=== PATIENT | female | born 1960 ===

== ENCOUNTER 2017-08-13 15:44 | Inpatient (IN) ==
--- NOTE | 2017-08-13 16:49 | Emergency Department Note ---
Arrival - Arrival Chief Complaint: Chest Pain Stated Complaint: chest pain ED Nursing Triage Note: c/o chest pain that started this am. Patient states that she did have some n/v this morning when it started. she went to [facility] they state that she has some changes to her EKG. Patient was given ASA 324mg, nitro 1inch to left chest wall, morphine 2mg, and zofran 4mg. Patient is currently pain free. Mode of Arrival: Stretcher Limitations: No Limitations Source: Patient, EMS, RN Notes Reviewed Time Seen by Provider: 08/13/17 16:06 - History of Present Illness HPI Narrative: The patient complains of intermittent lower sternal, epigastric and left lower chest pain radiating to the back, off and on since this morning. The patient says it started when she was getting ready for work. She says it felt "like gallstones or like acid reflux." She had some mild nausea and dizziness. No vomiting, shortness of breath or diaphoresis. She noted no exacerbating or relieving factors and has not had similar symptoms in the past. Patient states the pain is completely resolved at this point. She denies any fever, cough, rhinorrhea, sore throat or other recent illness. The patient does have a history of high blood pressure, diabetes, high cholesterol and a family history of early coronary disease. She has no history of heart disease. She is not a smoker. Patient was seen at [facility] where she had an EKG that showed a left bundle branch block. This was a change from a previous EKG done in February 2016. Her troponin was normal. Allergies/Adverse Reactions: Allergies Allergy/AdvReac Type Severity Reaction Status Date / Time No Known Allergies Allergy Unverified 08/13/17 15:54 Home Medications: Home Medications Medication Instructions Recorded Confirmed Type Aspirin [Ecotrin] 81 mg PO QAM 08/13/17 08/13/17 History Glyburide/Metformin HCl 2 each PO BID 08/13/17 08/13/17 History [Glyburide-Metformin 5-500 mg] Insulin Aspart [NovoLOG FlexPen] 5 units SUBCUT TID W/MEALS 08/13/17 08/13/17 History Insulin Detemir [Levemir FlexPen] 45 units SUBCUT BEDTIME 08/13/17 08/13/17 History Lisinopril [Lisinopril] 20 mg PO QAM 08/13/17 08/13/17 History Simvastatin [Simvastatin] 10 mg PO BEDTIME 08/13/17 08/13/17 History amLODIPine [Norvasc] 5 mg PO QAM 08/13/17 08/13/17 History Review of System - Review of System 12 point system: reviewed and no additional remarkable complaints except as stated - Review of System Constitutional: Absent: diaphoresis, fever, weakness Head/Ears/Nose/Throat: Absent: nasal drainage, sore throat Respiratory: Absent: cough, respiratory distress, wheezing Cardiovascular: Present: chest pain. Absent: palpitations, dyspnea on exertion , orthopnea, edema, syncope Gastrointestinal: Present: abdominal pain, nausea. Absent: vomiting Musculoskeletal: Present: back pain. Absent: arm pain, neck pain Medical,Surgical,& Family Hx - Medical History Cardio: History of: Hypertension Endocrine: History of: Diabetes Mellitus (NIDDM), Dyslipidemia - Surgical History Abdominal Surgeries: Surgical HX of: Appendectomy, Cholecystectomy - Family History Family History: noncontributory - Social History Smoking Status: Never smoker Frequency of Alcohol Use: None Type of Drug Use: None Exam Physical Examination: GENERAL: Alert. No acute distress. HEENT: Normocephalic and atraumatic. There is no nasal drainage. No pharyngeal erythema or exudate. NECK: Normal inspection. Supple. No lymphadenopathy or meningismus. LUNGS: No respiratory distress. Clear to auscultation bilaterally, no wheezes, rales or rhonchi. HEART: Regular rate and rhythm. Chest: Mild tenderness of the anterior left lower chest wall. ABDOMEN: Soft, nontender and nondistended with normoactive bowel sounds. BACK: Normal inspection. SKIN: Color normal. Warm and dry. EXTREMITIES: Nontender. Normal range of motion. No pedal edema. NEUROLOGICAL/PSYCHIATRIC: Alert and oriented -3 with normal mood and affect. Cranial nerves normal. No motor or sensory deficit. Vital Signs: Vital Signs Temperature 97.1 F L 08/13/17 15:44 Pulse Rate 54 L 08/13/17 15:44 Respiratory Rate 16 08/13/17 15:45 Blood Pressure 172/78 08/13/17 15:44 O2 Sat by Pulse Oximetry 100 08/13/17 15:44 Course - Reevaluation(s) Reevaluation #1: The patient has remained stable here with no further chest pain. Her repeat enzymes are normal and her EKG here does not show the left bundle branch block that was seen at [place]. She is mildly tender over the left lower rib margin and I suspect this is more likely chest wall and/or gastritis pain, however, she has risk factors of hypertension, diabetes, high cholesterol and an early family history of CAD. I have discussed patient with the hospitalist service who will see her and admit for observation and serial enzymes. Time: 18:26 Results - Labs Lab Results: I have reviewed the patients labs Labs: Labs were done at [facility] and are significant as follows: Sodium 144 Potassium 3.8 Chloride 109 CO2 27.6 BUN 16 Creatinine 0.8 Bilirubin 0.3 SGOT 16 SGPT 20 White blood cell count 5.7 Hemoglobin 12.6 Hematocrit 36.2 Platelet 137 Troponin less than 0.05 CPK 72 CK-MB 1.1 BMP 280 Laboratory Tests 08/13/17 17:32 Total Creatine Kinase 59 CK-MB (CK-2) 1.4 Troponin I < 0.015 - Impressions Chest x-ray was done and [facility] and showed no acute abnormality. EKG done at [facility] showed a sinus bradycardia at 57 with a left bundle branch block. Repeat EKG here showed a sinus bradycardia at 52 with no bundle branch block. There were some nonspecific T-wave abnormalities. Disposition Clinical Impression: Chest pain Case discussed with: patient Disposition: Still a Patient Condition: Stable Time of Disposition: 18:27
--- NOTE | 2017-08-13 17:39 | EKG Report ---
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
[2017-08-13 18:17] LABS: Troponin I Only < 0.015 NG/ML (0.00-0.045)
[2017-08-13] MEDS ORDERED: ACETAMINOPHEN 325 MG TABLET PO PRN ×2 (18:47)
[2017-08-13] MEDS ORDERED: DOCUSATE SODIUM 100 MG CAPSULE PO PRN (18:47)
[2017-08-13] MEDS ORDERED: diphenhydrAMINE CAP 25 MG CAPSULE PO PRN (18:47)
[2017-08-13] MEDS ORDERED: DEXTROSE 50% 25 GM/50 ML SYRINGE IV PRN (18:47)
[2017-08-13] MEDS ORDERED: guaiFENesin/DM ER 600-30 MG TABLET PO PRN (18:47)
[2017-08-13] MEDS ORDERED: ONDANSETRON 4 MG/2 ML VIAL IV PRN (18:47)
[2017-08-13] MEDS ORDERED: MORPHINE 2 MG/1 ML SYRINGE IV PRN (18:47)
[2017-08-13] MEDS ORDERED: PROMETHAZINE 25 MG/1 ML VIAL IM PRN (18:47)
[2017-08-13] MEDS ORDERED: GLUCAGON 1 MG VIAL IM PRN (18:47)
--- NOTE | 2017-08-13 19:00 | Hospitalist History & Physical ---
Assessment and Plan - Time spent with patient Time spent with patient: Greater than 30 minutes (1) Dizziness Status: Acute Assessment and plan: 57-year-old female admitted by the hospitalist service as a transfer from [facility] with complaints of chest pain and dizziness. She does have bradycardia and she is unsure if this is normal for her. She does take amlodipine and this will be held for right now. Remainder of her hypertensive medications will be restarted. She will also be given hydralazine as needed for blood pressure greater than 150/80. Patient is a diabetic on metformin and insulin. We will hold these and put her on sliding scale for now. She will get serial troponins and serial EKGs. We will also check a CT of the chest PE protocol to rule out pulmonary embolism. Checking amylase and lipase as well to rule out pancreatitis. Will await results of CT of the chest and remaining labs and see if cardiology needs to be consulted. Patient's case has been discussed with Dr. West and further recommendations to follow. Current Visit: Yes (2) Diabetes Status: Acute Current Visit: Yes (3) Hypertension Status: Acute Current Visit: Yes (4) Hyperlipidemia Status: Acute Current Visit: Yes (5) Bradycardia Status: Acute Current Visit: Yes (6) Chest pain Status: Acute Current Visit: Yes History of Present Illness Chief complaint: Chest pain and dizziness History of present illness: Ms. Mustafa is a 57 year old female with history of diabetes, hypertension, hyperlipidemia transferred to the ED from the [facility] with complaints of dizziness and chest pain. Patient states this morning when she was getting ready for work she started to have epigastric and left-sided chest pain that radiates through to her back and around her flank. She rates the pain a 5/10 and it is unrelenting and burning. She states she has been having mild headaches and some dizziness as well. She denies shortness of breath or lower extremity edema. Records from the [facility] show normal CBC and BMP. Her troponins are normal. EKG is showing left bundle branch block at [facility] [place] and EKG done here is showing bradycardia with rate at 52 and moderate T-wave abnormality with possible lateral ischemia. She is mildly hypertensive with blood pressure 179/79. Upon exam she is lying comfortably in no acute distress, chest is clear, she has bradycardic, abdomen is soft and nontender to palpation. After discussion with Dr. Vital the ED physician and Dr. West the admitting hospitalist, it was agreed patient will be admitted for further evaluation and treatment. Patient's medicines have been reconciled and she is a full code. Home Medications Medication Instructions Recorded Confirmed Type Aspirin [Ecotrin] 81 mg PO QAM 08/13/17 08/13/17 History Glyburide/Metformin HCl 2 each PO BID 08/13/17 08/13/17 History [Glyburide-Metformin 5-500 mg] Insulin Aspart [NovoLOG FlexPen] 5 units SUBCUT TID W/MEALS 08/13/17 08/13/17 History Insulin Detemir [Levemir FlexPen] 45 units SUBCUT BEDTIME 08/13/17 08/13/17 History Lisinopril [Lisinopril] 20 mg PO QAM 08/13/17 08/13/17 History Simvastatin [Simvastatin] 10 mg PO BEDTIME 08/13/17 08/13/17 History amLODIPine [Norvasc] 5 mg PO QAM 08/13/17 08/13/17 History Allergies Allergy/AdvReac Type Severity Reaction Status Date / Time No Known Allergies Allergy Unverified 08/13/17 15:54 Medical,Surgical,& Family Hx - Medical History Cardio: History of: Hypertension Endocrine: History of: Diabetes Mellitus (NIDDM), Dyslipidemia - Surgical History Abdominal Surgeries: Surgical HX of: Appendectomy, Cholecystectomy - Family History Family History: Reports;: Family Hypertension - Social History Smoking Status: Never smoker Frequency of Alcohol Use: None Type of Drug Use: None Marital Status: Single Lives With:: Alone Functional capacity: independent ambulation 12 point system: reviewed and no additional remarkable complaints except as stated Exam - Constitutional Vitals: Period Temp Pulse Resp BP Sys/Fish Pulse Ox Last 24 Hr 97.1 F-97.1 F 54-54 16-16 172-172/78-78 100 Exam: Constitutional System: No distress. No tremulousness. Head: Normocephalic, atraumatic. Ears, Nose and Throat System: No evidence of Otitis or Mastoiditis. No epistaxis or discharge Eyes System: Pupils equal, round, and reactive. Extraocular muscles intact. Neck: Supple, without adenopathy, No jugular venous distention. No thyromegaly, neck mass, or prior surgery apparent. Respiratory System: Chest clear to auscultation. Cardiovascular System: Heart with bradycardic rate and rhythm. No murmur. GI System: Abdomen soft, nontender. Normo active bowel sounds present. Musculoskeletal System: limbs with no pedal edema. Full distal pulses. Neurological System: No discernable sensory deficit. No aphasia Psychiatric System: Conversation is rational Results - Labs Lab Results: I have reviewed the past 24 hour labs Labs: Labs from [facility] show normal CBC and CMP, normal troponin Amylase and lipase are pending - Diagnostic Findings Procedure: Chest x-ray: pending, CT - chest: pending
--- NOTE | 2017-08-13 19:04 | XRay Report ---
2 view chest. Indication: Chest pain. Comparison: Outside chest x-ray from earlier today. The heart is normal in size. The mediastinal contours are normal. The pulmonary vasculature is normal. The right lung is clear. There is mild interstitial prominence in the left lung base, not seen on the previous study. No pneumothorax. No pleural effusion. Degenerative changes are present within the spinal column. Impression: Mild atelectasis or early infiltrate developing in the left lung base. PROCEDURE INTERPRETED AT [facility] DEPARTMENT OF RADIOLOGY Final Report Signed by: Dr. Margie Davis
[2017-08-13 19:17] LABS: Magnesium 1.8 MG/DL (1.8-2.4); Risk Ratio 3.75
--- NOTE | 2017-08-13 19:28 | CT Report ---
CT of the chest with intravenous contrast, PE protocol. Indication: Chest pain. 80 cc Omni 350. Axial images were obtained with sagittal and coronal 2-D reconstructions. No previous study. There is no evidence of pulmonary thromboembolism. The thyroid gland is normal in size. There is no supraclavicular or axillary lymphadenopathy. There is no hilar or mediastinal lymphadenopathy. The heart is normal in size. The thoracic aorta is of normal caliber. There are mild hypoaeration changes at the lung bases. Degenerative changes are noted within the spinal column. Impression: Mild basilar hypoaeration. The CT exam was performed using one or more of the following dose reduction techniques: Automated exposure control, adjustment of the mA and/or kV according to patient size, or use of iterative reconstruction technique. PROCEDURE INTERPRETED AT [facility] DEPARTMENT OF RADIOLOGY Final Report Signed by: Dr. Margie Davis
[2017-08-13] MEDS: INSULIN LISPRO 100 UNIT/ML SUBCUT SCH ×2 (20:32→21:58)
[2017-08-13] MEDS: SODIUM CHLORIDE 0.9% 1,000 ML IV SCH (21:52)
[2017-08-13] MEDS: SIMVASTATIN 10 MG TABLET PO SCH (21:57)
[2017-08-13 23:37] LABS: Troponin I Only < 0.015 NG/ML (0.00-0.045)
[2017-08-13] MEDS ORDERED: HEPARIN/NACL 0.9% 2 UNITS/ML 500 ML IV ONE (23:37)
[2017-08-13] MEDS ORDERED: LIDOCAINE 1% 20 ML VIAL ONE (23:37)
[2017-08-13] MEDS ORDERED: fentaNYL 100 MCG/2 ML VIAL ONE (23:50)
[2017-08-13] MEDS ORDERED: MIDAZOLAM 2 MG/2 ML VIAL ONE (23:50)
--- NOTE | 2017-08-14 00:26 | EKG Report ---
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
--- NOTE | 2017-08-14 00:28 | Event Note ---
I was called by the nurses on the fifth floor due to an abnormal EKG done on Ms. Mustafa for chest pain. The EKG was compared to a previous one done in our emergency department. Findings were also discussed with the emergency room physician. I contacted the smokehouse worker to notify her of the heart alert and the EKG changes. The Director Marketing Analytics team was activated. I later notified Dr. Bosch of the patient's EKG changes. We discussed the case. At this time the patient has an uncontrolled blood pressure with systolic over 200 but is no longer having active chest pain. The patient will be taken to the CCU and started on nitroglycerin drip and given Lovenox subcutaneously for anticoagulation. The patient will be evaluated in the morning by cardiology. At this time she will be under close monitoring in the CCU. I have explained this to the patient and she agrees to move forward. Of note her second set of cardiac enzymes is negative.
[2017-08-14] MEDS ORDERED: ENOXAPARIN 80 MG/0.8 ML SYRINGE SUBCUT SCH (00:30)
[2017-08-14] MEDS ORDERED: NITROGLYCERIN DRIP 50 MG/250 ML BOTTLE IV SCH (00:30)
--- NOTE | 2017-08-14 01:52 | EKG Report ---
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
[2017-08-14 04:58] LABS: Basophils % 0.3 % (0.0-0.8); Eosinophils # 0.1 10*3/uL (0.0-0.87); Eosinophils % 1.8 % (0.00-10.9); Hematocrit 33.8 VOL% (35.7-47.0); Immature Granulocytes % 0.3 %; Immature Granulocytes Absolute 0.02 #; Lymphocytes # 1.6 10*3/uL (1.4-4.0); Lymphocytes % 25.6 % (21.3-54.2); Mean Corpuscular HGB Conc 35.5 GM/DL (32-36); Mean Corpuscular Hemoglobin 29 PG (27-34); Mean Corpuscular Volume 81.4 FL (87-102); Mean Platelet Volume 11.1 FL (9.6-12.0); Monocytes # 0.4 10*3/uL (0.11-0.8); Monocytes % 6.1 % (1.7-12.7); Neutrophils # 4.1 10*3/uL (1.4-7.4); Neutrophils % 65.9 % (38.7-73.9); Platelet Count 139 T/CUMM (130-400); Red Blood Count 4.15 MC/CUMM (3.8-5.5); Red Cell Distribution Width 13.2 % (9.3-17.3); White Blood Count 6.2 T/CUMM (4-12)
[2017-08-14 05:28] LABS: Calcium 8.3 MG/DL (8.5-10.1); Osmolality,Calculated 286.4 MOS/KG (273-304); Potassium 3.5 MMOL/L (3.5-5.1)
[2017-08-14 05:31] LABS: Troponin I Only < 0.015 NG/ML (0.00-0.045)
[2017-08-14] MEDS: SODIUM CHLORIDE 0.9% 1,000 ML IV SCH ×2 (06:00→16:59)
[2017-08-14] MEDS ORDERED: diphenhydrAMINE CAP 25 MG CAPSULE PO ONE (06:45)
[2017-08-14] MEDS ORDERED: DIAZEPAM 5 MG TABLET PO ONE (06:45)
--- NOTE | 2017-08-14 06:50 | Cardiology Consult Note ---
Assessment and Plan - Time spent with patient Time spent with patient: Greater than 30 minutes (1) Unstable angina Status: Acute Current Visit: Yes (2) Diabetes Status: Chronic Current Visit: Yes Qualifiers: Diabetes mellitus type: type 2 (3) Hypertension Status: Chronic Assessment and plan: Uncontrolled Current Visit: Yes Qualifiers: Hypertension type: essential hypertension Qualified Code(s): I10 - Essential (primary) hypertension (4) Hyperlipidemia Status: Chronic Current Visit: Yes Qualifiers: Hyperlipidemia type: pure hypercholesterolemia Qualified Code(s): E78.00 - Pure hypercholesterolemia, unspecified; E78.0 - Pure hypercholesterolemia History of Present Illness - Data of Consult Patient: new to practice Consult date: 08/14/17 Requesting Physician: Jose Ramon West - Consult Narrative Reason for consult: chest pain History of present illness: Ms. Mustafa is a 57 year old female who has not experienced chest pain until yesterday. The patient is diabetic hypertensive and has a strong family history of coronary disease with both her mother and brother having coronary events at a young age. The patient has poorly controlled diabetes and states her blood sugars run as high as 280 consistently. 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 Yesterday she developed chest discomfort that she describes as "indigestion" it was worse throughout the morning it seemed to get better anytime she was hurrying to get her kids ready to go to school or when she walked. It was not associated with nausea or diaphoresis. She states she has indigestion frequently but this was just a little different but that is exactly what it felt like. The patient went to [facility] was ultimately transferred to [facility] was subsequently transferred here to the inpatient setting. She had a left bundle branch block at the outpatient facility. She has intermittent significant ST segment changes and a "heart alert" was called last night the patient was taken directly to the Internet Architect as the Internet Architect was activated. She was not experiencing chest discomfort at that time I was called once the patient was on the table and this was the first time her of the patient. The patient was not having chest pain and she had a markedly elevated blood pressure. I later discussed with Dr. West. I recommend the patient have blood pressure control and medical management in the ICU. At this time the patient had 2 sets of negative biomarkers and intermittent left bundle branch block. She is currently pain-free has not had any discomfort during the night. I saw on the early a.m. hours of 08/14/2017. I discussed with her in detail the risks benefits of options of left heart catheterization. We discussed each potential complication. She was not familiar with left heart catheterization. She did voice understanding and wished to proceed. Informed signed consent was taken from the patient after our discussion by nursing staff. CC: Jose Ramon West MD - Home Medications and Allergies Home Medications: Home Medications Medication Instructions Recorded Confirmed Type Aspirin [Ecotrin] 81 mg PO QAM 08/13/17 08/13/17 History Glyburide/Metformin HCl 2 each PO BID 08/13/17 08/13/17 History [Glyburide-Metformin 5-500 mg] Insulin Aspart [NovoLOG FlexPen] 5 units SUBCUT TID W/MEALS 08/13/17 08/13/17 History Insulin Detemir [Levemir FlexPen] 45 units SUBCUT BEDTIME 08/13/17 08/13/17 History Lisinopril [Lisinopril] 20 mg PO QAM 08/13/17 08/13/17 History Simvastatin [Simvastatin] 10 mg PO BEDTIME 08/13/17 08/13/17 History amLODIPine [Norvasc] 5 mg PO QAM 08/13/17 08/13/17 History Allergies/Adverse Reactions: Allergies Allergy/AdvReac Type Severity Reaction Status Date / Time No Known Allergies Allergy Unverified 08/13/17 15:54 - Constitutional Constitutional: Absent: anorexia, chills - EENT Eyes: Present: blurry vision Ears: Absent: ear discharge, tinnitus Nose, mouth and throat: Absent: dysphagia, epistaxis, lip swelling - Cardiovascular Cardiovascular: Present: chest pain at rest, chest pain with activity, lightheadedness - Respiratory Respiratory: Present: dyspnea on exertion - Gastrointestinal Gastrointestinal: Present: dyspepsia. Absent: abdominal pain, bloating - Genitourinary Genitourinary: Absent: abnormal vaginal bleeding, difficulty urinating - Musculoskeletal Musculoskeletal: Absent: arthralgias, joint swelling - Neurological Neurological: Present: headache(s). Absent: abnormal gait, abnormal speech, disequilibrium - Psychiatric Psychiatric: Absent: anxiety, auditory hallucinations, depression - Endocrine Endocrine: Present: fatigue, heat intolerance. Absent: cold intolerance, polyuria - Hematologic/Lymphatic Hematologic/Lymphatic: Absent: easy bleeding, easy bruising Medical,Surgical,& Family Hx - Medical History Cardio: History of: Hypertension Psychological: No history of: Anxiety Disorders, ADHD, Behavior Problems, Bipolar Disorder, Depression, Psychiatric/Substance Abuse Tx, Schizophrenia, Violent Behavior, Psychiatric Problems Endocrine: History of: Diabetes Mellitus (NIDDM), Dyslipidemia - Surgical History Abdominal Surgeries: Surgical HX of: Appendectomy, Cholecystectomy Reproductive Surgeries: Surgical HX of;: Section - Family History Family History: Reports;: Family Heart Disease, Family Hypertension - Social History Smoking Status: Never smoker Frequency of Alcohol Use: None Type of Drug Use: None Marital Status: Single Lives With:: Children Functional capacity: independent ambulation Physical Examination Vital Signs Temp Pulse Resp BP Pulse Ox 97.1 F L 54 L 16 172/78 100 08/13/17 15:44 08/13/17 15:44 08/13/17 15:44 08/13/17 15:44 08/13/17 15:44 General: Present: Appears Well, Other (Morbid exogenous obesity) HEENT: Absent: Pallor Neck: Present: Supple Neck, Midline Trachea Cardiac: Present: Reg Rate and Rhythm, S1/S2, S4 Lungs: Present: Normal Exam, Clear Ascult./Percussion Neuro: Present: Cranial Nerve 2-12 Intact, Motor Function Intact, Sensory Function Intact, DTR Norm/Equal U/L Extrem, Negative Rhomberg, Coordination Normal Abdomen: Present: Soft, Active Bowel Sounds, No Masses, No Pulsations/Bruits Skin: Present: Clear Extremities: Present: Edema (trace) Result/EKG - Labs CBC & BMP: 08/14/17 04:00 08/14/17 04:01 Labs: Laboratory Results - last 24 hr 08/13/17 08/13/17 08/13/17 17:32 17:32 17:32 WBC RBC Hgb Hct MCV MCH MCHC RDW Plt Count MPV Neut % (Auto) Lymph % (Auto) [place] % (Auto) Eos % (Auto) Baso % (Auto) Neut # (Auto) Lymph # (Auto) [place] # (Auto) Eos # (Auto) Baso # (Auto) Immature Gran % Nucleated RBC % Immature Gran # Nucleated RBCs # Immature Plt Fraction Sodium Potassium Chloride Carbon Dioxide Anion Gap BUN Creatinine GFR Calculation BUN/Creatinine Ratio Glucose POC Glucose Hemoglobin A1c 9.3 H Calculated Osmolality Calcium Magnesium Total Creatine Kinase 59 CK-MB (CK-2) 1.4 Troponin I < 0.015 B-Natriuretic Peptide Triglycerides Cholesterol LDL Cholesterol VLDL Cholesterol HDL Cholesterol Heart Disease Risk Ratio Amylase 40 Lipase 143.0 08/13/17 08/13/17 08/13/17 17:32 19:41 20:17 WBC RBC Hgb Hct MCV MCH MCHC RDW Plt Count MPV Neut % (Auto) Lymph % (Auto) [place] % (Auto) Eos % (Auto) Baso % (Auto) Neut # (Auto) Lymph # (Auto) [place] # (Auto) Eos # (Auto) Baso # (Auto) Immature Gran % Nucleated RBC % Immature Gran # Nucleated RBCs # Immature Plt Fraction Sodium Potassium Chloride Carbon Dioxide Anion Gap BUN Creatinine GFR Calculation BUN/Creatinine Ratio Glucose POC Glucose 73 L 107 H Hemoglobin A1c Calculated Osmolality Calcium Magnesium 1.8 Total Creatine Kinase CK-MB (CK-2) Troponin I B-Natriuretic Peptide Triglycerides 155 H Cholesterol 165 LDL Cholesterol 102.0 VLDL Cholesterol 31.0 HDL Cholesterol 44 Heart Disease Risk Ratio 3.75 Amylase Lipase 08/13/17 08/14/17 08/14/17 23:02 04:00 04:00 WBC 6.2 RBC 4.15 Hgb 12.0 Hct 33.8 L MCV 81.4 L MCH 29 MCHC 35.5 RDW 13.2 Plt Count 139 MPV 11.1 Neut % (Auto) 65.9 Lymph % (Auto) 25.6 Montgomery % (Auto) 6.1 Eos % (Auto) 1.8 Baso % (Auto) 0.3 Neut # (Auto) 4.1 Lymph # (Auto) 1.6 Montgomery # (Auto) 0.4 Eos # (Auto) 0.1 Baso # (Auto) 0.0 Immature Gran % 0.3 Nucleated RBC % 0.0 Immature Gran # 0.02 Nucleated RBCs # 0.00 Immature Plt Fraction 0.0 Sodium Potassium Chloride Carbon Dioxide Anion Gap BUN Creatinine GFR Calculation BUN/Creatinine Ratio Glucose POC Glucose Hemoglobin A1c Calculated Osmolality Calcium Magnesium Total Creatine Kinase 49 CK-MB (CK-2) 1.2 Troponin I < 0.015 B-Natriuretic Peptide 66 Triglycerides Cholesterol LDL Cholesterol VLDL Cholesterol HDL Cholesterol Heart Disease Risk Ratio Amylase Lipase 08/14/17 08/14/17 04:01 04:01 WBC RBC Hgb Hct MCV MCH MCHC RDW Plt Count MPV Neut % (Auto) Lymph % (Auto) Montgomery % (Auto) Eos % (Auto) Baso % (Auto) Neut # (Auto) Lymph # (Auto) Montgomery # (Auto) Eos # (Auto) Baso # (Auto) Immature Gran % Nucleated RBC % Immature Gran # Nucleated RBCs # Immature Plt Fraction Sodium 140 Potassium 3.5 Chloride 106 Carbon Dioxide 28 Anion Gap 9.5 BUN 12 Creatinine 0.60 GFR Calculation 109 BUN/Creatinine Ratio 20.00 Glucose 235 H POC Glucose Hemoglobin A1c Calculated Osmolality 286.4 Calcium 8.3 L Magnesium Total Creatine Kinase 44 CK-MB (CK-2) 1.2 Troponin I < 0.015 B-Natriuretic Peptide Triglycerides Cholesterol LDL Cholesterol VLDL Cholesterol HDL Cholesterol Heart Disease Risk Ratio Amylase Lipase - EKG EKG results: interpreted by me (Intermittent LBBB with baseline tracing showing anterior TWI)
--- NOTE | 2017-08-14 07:50 | EKG Report ---
Stationary ECG Study [facility] Test Date: 08/13/2017 10:34:28 PM Pat Name: TATY MEDELLIN Department: Room: 126 Gender: F Global Marketing Coordinator: PEPITO : 1960 Requested by: Pricilla Landa Order Number: [id number] Reading MD: BENI STOUT Intervals [place] Rate: 56 P: 31 VT: 176 QRS: -33 QRSD: 147 T: 113 QT: 478 QTc: 470 Interpretive Statements SINUS RHYTHM LEFT BUNDLE BRANCH BLOCK Electronically Signed On 08-16-17 21:14:49 CDT by BENI STOUT [email or web address]
--- NOTE | 2017-08-14 08:12 | EKG Report ---
Stationary ECG Study [facility] Test Date: 08/14/2017 7:56:47 AM Pat Name: TATY MEDELLIN Department: Room: 126 Gender: F Acid Purifier: REJI : 1960 Requested by: Jose Ramon West Order Number: [id number] Reading MD: ALEXANDRA LLAMAS Intervals [place] Rate: 55 P: 5 MT: 161 QRS: 8 QRSD: 148 T: 152 QT: 496 QTc: 485 Interpretive Statements SINUS RHYTHM at 55 bpm LEFT BUNDLE BRANCH BLOCK PROLONGED QTC Electronically Signed On 08-17-17 12:17:25 CDT by ALEXANDRA LLAMAS [email or web address]
[2017-08-14 08:53] LABS: Troponin I Only < 0.015 NG/ML (0.00-0.045)
[2017-08-14] MEDS ORDERED: ENOXAPARIN 40 MG/0.4 ML SYRINGE SUBCUT SCH (09:00)
[2017-08-14] MEDS: PANTOPRAZOLE 40 MG TABLET PO SCH (10:05)
[2017-08-14] MEDS: amLODIPine 5 MG TABLET PO SCH (10:05)
[2017-08-14] MEDS: ASPIRIN EC 81 MG TABLET PO SCH (10:05)
[2017-08-14] MEDS: LISINOPRIL 20 MG TABLET PO SCH (10:05)
[2017-08-14] MEDS ORDERED: NITROGLYCERIN DRIP 50 MG/250 ML BOTTLE IV ONE (10:16)
[2017-08-14] MEDS ORDERED: HEPARIN/NACL 0.9% 2 UNITS/ML 1,000 ML IV ONE (10:16)
[2017-08-14] MEDS ORDERED: LIDOCAINE 1% 20 ML VIAL ONE (10:16)
[2017-08-14] MEDS ORDERED: VERAPAMIL 5 MG/2 ML VIAL ONE (10:16)
--- NOTE | 2017-08-14 10:19 | Hospitalist Progress Note ---
Assessment and Plan (1) Chest pain Status: Acute Assessment and plan: The patient will have coronary arteriogram today. We will continue efforts to control blood pressure. Current Visit: Yes Qualifiers: Chest pain type: chest pain due to myocardial ischemia Ischemic chest pain type: unstable angina pectoris Qualified Code(s): I20.0 - Unstable angina (2) Hypertension Status: Chronic Current Visit: Yes Qualifiers: Hypertension type: essential hypertension Qualified Code(s): I10 - Essential (primary) hypertension (3) Unstable angina Status: Acute Current Visit: Yes Hospitalist: Subjective Interval history: The patient had chest pain last night and was moved to the coronary care unit. EKG revealed changes consistent with ischemia. Dr. Bosch plans coronary arteriogram today. Exam - Constitutional Vitals: Period Temp Pulse Resp BP Sys/Fish Pulse Ox Last 24 Hr 97.1 F-98 F 50-68 12-20 119-190/50-91 94-100 General appearance: mild distress - Respiratory Respiratory exam: Present: clear to auscultation bilaterally - Cardiovascular Cardiovascular exam: Present: regular rate and rhythm - GI/Abdominal GI/Abdominal exam: Present: normal bowel sounds Results - Labs CBC & BMP: 08/14/17 04:00 08/14/17 04:01 Lab Results: I have reviewed the past 24 hour labs
--- NOTE | 2017-08-14 10:26 | History and Physical Update ---
Sedation H&P Update - History and Physical H&P was reviewed, the patient examined and there: are no changes in the patients condition since last H&P was completed. - Dictation Physical: refer to scanned H&P - Physical Exam Mental Status: alert and oriented Heart: regular rate and rhythm Lung: clear to auscultation Abdomen: within normal limits Vitals: within normal limits - Sedation Plan for Sedation: moderate Patient Consent: Procedure disscussed with patient and patinet has consented., Risks and benefits were discussed with patient,including infection,, bleeding, injury to surrounding structures, seizure, temporary nerve, Patient understands and accepts potential risks/benefits and agrees to, proceed. ASA Class: III Airway Assessment: Class III: Soft palate, base of uvula visible
[2017-08-14] MEDS ORDERED: MIDAZOLAM 2 MG/2 ML VIAL ONE (10:28)
[2017-08-14] MEDS ORDERED: fentaNYL 100 MCG/2 ML VIAL ONE (10:29)
[2017-08-14] MEDS ORDERED: ENOXAPARIN 60 MG/0.6 ML SYRINGE ONE (10:46)
--- NOTE | 2017-08-14 11:26 | Cardiac Catheterization ---
Date of Procedure:: 08/14/17 Pre-op Diagnosis: Intermittent LBBB and chest pain Post-op diagnosis: other (Angiographically normal right dominant epicardial coronary arteries) Procedure: Procedures: 1. Selective left and right coronary angiography 2. Left heart catheterization resting hemodynamics After signed an informed consent was obtained, the patient was prepped and draped in standard fashion for right radial access. Time out was recorded. 0.5 mL of 1% lidocaine were infiltrated in the skin and subcutaneous tissue overlying the right radial artery and Seldinger technique was utilized with a Angiocath to obtain access to the right radial artery. A CAILabs glide wire was then advanced into the midforearm under fluoroscopic guidance. The Angiocath was removed and a 6 Guamanian Terumo glide sheath was placed over the Glidewire. The sheath was aspirated and flushed and then 5 mg of verapamil and 200 g of nitroglycerin were given through the sheath. At this time an 035 J-wire was used to guide a Granite Canon 6 Guamanian catheter into the central aorta across the aortic valve and into the ventricle. A 10 mL injection of contrast was used for ventriculography in the MORENO projection. Pressure measurements and pullback measurements were obtained. The Granite Canon catheter was then used to engage the left main coronary artery and multiple orthogonal views of the left system were obtained. The catheter then was torqued into the right coronary artery and orthogonal views of the right system were obtained. The catheter was then exchanged over the wire. The sheath was aspirated and flushed. The bobcat operator reviewed the films. And a TR band was placed over the glide sheath and used for hemostasis. Total contrast exposure 60 cc of omnipaque Total x-ray exposure: 4.1 min fluoroscopy time and 396 mGy air Kerma. Total contrast exposure 60 cc of Omnipaque Findings: 1. EF 55% 2. Hemodynamics LV: 127/0 EDP:7 Ao:146/85 3. Left main: Angiographically normal 4: Left anterior descending artery: Angiographically normal 5: Left circumflex artery: Angiographically normal, nondominant 6: Right coronary artery: Angiographically normal, dominant Assessment: 1. Angiographically normal right dominant epicardial coronary arteries 2. Normal resting hemodynamics 3. Labile hypertension 4. Intermittent left bundle branch block Plan: 1. Therapeutic lifestyle changes and risk factor modification. Nothing further to add at this time continue aspirin, statin and blood pressure control 2. From cardiology standpoint may be discharged in 2 hours of TR band access site looks good. Nothing further to add we will sign off. Implants: none Anesthesia: moderate conscious sedation Surgeon / Physician: Coco Rangel Wirer Helper: none Estimated blood loss: none Specimens: none sent Condition: stable Disposition: ICU/CCU - Medications / Follow-up
--- NOTE | 2017-08-14 11:27 | EKG Report ---
Stationary ECG Study [facility] Test Date: 08/14/2017 11:25:19 AM Pat Name: TATY MEDELLIN Department: Room: 126 Gender: F Shadowgraph Operator: NOHEMY : 1960 Requested by: Coco Stout Order Number: [id number] Reading MD: COCO STOUT Intervals [place] Rate: 54 P: 25 CT: 175 QRS: -41 QRSD: 146 T: 109 QT: 513 QTc: 499 Interpretive Statements SINUS BRADYCARDIA LEFTAXIS DEVIATION LEFT BUNDLE BRANCH BLOCK Electronically Signed On 08-15-17 18:37:32 CDT by COCO STOUT [email or web address]
[2017-08-14] MEDS: INSULIN LISPRO 100 UNIT/ML SUBCUT SCH ×2 (12:54→17:10)
[2017-08-14] MEDS: hydrALAZINE 20 MG/1 ML VIAL IV PRN ×3 (13:17→20:10)
[2017-08-14] MEDS: SIMVASTATIN 10 MG TABLET PO SCH (20:25)
--- NOTE | 2017-08-15 07:32 | EKG Report ---
Stationary ECG Study [facility] Test Date: 08/15/2017 7:31:30 AM Pat Name: TATY MEDELLIN Department: Room: 126 Gender: F Horse Racing Analyst: REJI : 1960 Requested by: Beni Stout Order Number: [id number] Reading MD: BENI STOUT Intervals [place] Rate: 59 P: 34 [place]: 168 QRS: -34 QRSD: 149 T: 120 QT: 476 QTc: 475 Interpretive Statements SINUS RHYTHM LEFT AXIS DEVIATION LEFT BUNDLE BRANCH BLOCK Electronically Signed On 08-15-17 18:39:43 CDT by BENI STOUT [email or web address]
[2017-08-15] MEDS: PANTOPRAZOLE 40 MG TABLET PO SCH (08:20)
[2017-08-15] MEDS: INSULIN LISPRO 100 UNIT/ML SUBCUT SCH ×2 (08:20→17:08)
[2017-08-15] MEDS: LISINOPRIL 20 MG TABLET PO SCH (08:20)
[2017-08-15] MEDS: amLODIPine 5 MG TABLET PO SCH (08:20)
[2017-08-15] MEDS: ASPIRIN EC 81 MG TABLET PO SCH (08:20)
--- NOTE | 2017-08-15 13:11 | Hospitalist Progress Note ---
Assessment and Plan (1) Chest pain Status: Acute Assessment and plan: T coronary arteriogram revealed no obstructive coronary disease. The patient will be observed overnight we will follow blood pressure. We will recheck electrolytes tomorrow and consider discharge home. Current Visit: Yes Qualifiers: Chest pain type: chest pain due to myocardial ischemia Ischemic chest pain type: unstable angina pectoris Qualified Code(s): I20.0 - Unstable angina (2) Hypertension Status: Chronic Current Visit: Yes Qualifiers: Hypertension type: essential hypertension Qualified Code(s): I10 - Essential (primary) hypertension (3) Unstable angina Status: Acute Current Visit: Yes Hospitalist: Subjective Interval history: The patient was admitted to the hospital with atypical chest pain. The patient had abnormal EKG. The patient had coronary arteriogram yesterday evening which revealed normal coronary arteries. The patient is now ready for transfer to telemetry and possibly home tomorrow. We will recheck electrolytes in the morning. Exam - Constitutional Vitals: Period Temp Pulse Resp BP Sys/Fish Pulse Ox Last 24 Hr 97.8 F-99.9 F 56-80 14-18 127-216/61-105 95-100 General appearance: no acute distress - Respiratory Respiratory exam: Present: clear to auscultation bilaterally - Cardiovascular Cardiovascular exam: Present: regular rate and rhythm - GI/Abdominal GI/Abdominal exam: Present: normal bowel sounds Results - Labs CBC & BMP: 08/14/17 04:00 08/14/17 04:01 Lab Results: I have reviewed the past 24 hour labs Quality Measures - VTE Contraindication to Pharmacological VTE Prophylaxis: Already on Theraputic Agent , No Prophylaxis Needed
[2017-08-15] MEDS: SIMVASTATIN 10 MG TABLET PO SCH (20:28)
[2017-08-16] MEDS: INSULIN LISPRO 100 UNIT/ML SUBCUT SCH (09:20)
[2017-08-16] MEDS: LISINOPRIL 20 MG TABLET PO SCH (09:21)
[2017-08-16] MEDS: PANTOPRAZOLE 40 MG TABLET PO SCH (09:21)
[2017-08-16] MEDS: ASPIRIN EC 81 MG TABLET PO SCH (09:21)
[2017-08-16] MEDS: amLODIPine 5 MG TABLET PO SCH (09:21)
[2017-08-16 11:44] VITALS: BP 182/79
--- NOTE | 2017-08-16 12:52 | Discharge Summary ---
Hospital Course - Hospital Course Hospital Course: Mrs. Mustafa was admitted to the hospital with a spell of weakness associated with chest discomfort. She had coronary arteriogram which did not reveal any obstructive coronary disease. The patient had adjustment of blood pressure medications and diabetes pills. The patient has returned to her baseline physical status and is ready for discharge home and may return to work on Saturday. The patient should have blood pressure check at the health center in 2 weeks. On the date of discharge, chest is clear and abdomen soft. Heart has regular rate and rhythm. Patient medications were reconciled upon admission, and again at the time of discharge. The patient was screened for tobacco use and found to be a non-smoker. The patient's medical decsion maker is themself, and when asked, they asked to be Full code. Discharge Time was 34 minutes, including final examination, evaluation and planning, education, reconciliation of medications, writing prescriptions, coordinating care with case assistant, and preparing discharge documentation. - Time spent with patient Time with patient DS: Greater than 30 minutes Diagnosis - Discharge Diagnosis (1) Chest pain Status: Resolved (2) Hypertension Status: Chronic (3) Unstable angina Status: Resolved Discharge Plan - Discharge Data Disposition: Disch To Home/Self Care Condition at Discharge: Stable Discharge Diet: diabetic diet Activity: resume usual activities as tolerated, other (Return to work on Saturday) - Discharge Medications Continue Aspirin [Ecotrin] 81 mg PO QAM Simvastatin 10 mg PO BEDTIME Glyburide/Metformin HCl [Glyburide-Metformin 5-500 mg] 2 each PO BID amLODIPine [Norvasc] 5 mg PO QAM Lisinopril 20 mg PO QAM Changed Insulin Detemir [Levemir FlexPen] 30 units SUBCUT BEDTIME #0 Discontinued Insulin Aspart [NovoLOG FlexPen] 5 units SUBCUT TID W/MEALS - Follow Up or Referral - Forms/Instructions Exam - Constitutional Vitals: Period Temp Pulse Resp BP Sys/Fish Pulse Ox Last 24 Hr 97.2 F-98.5 F 51-60 14-18 140-191/65-97 96-100 Discharge Results Procedures and tests throughout hospitalization: Pending Orders 08/13/17 23:39 CL heart Stat 08/14/17 11:00 CL heart Stat 08/16/17 12:06 Basic Metabolic Panel w/Mg Routine Troponin I & CK Total Routine Labs on day of discharge: Labs from last 24 hours 08/16/17 08/16/17 08/15/17 11:31 07:20 19:36 POC Glucose 236 H 165 H 238 H 08/15/17 15:45 POC Glucose 197 H DS: Provider Date of admission: 08/13/17 18:46 Primary care physician: Elias Brady MD Attending physician on admission: Jose Ramon West MD Discharging clinician: Edward Ndiaye MD
[2017-08-16 13:07] LABS: Calcium 8.8 MG/DL (8.5-10.1); Magnesium 1.9 MG/DL (1.8-2.4); Osmolality,Calculated 285.4 MOS/KG (273-304); Potassium 4.1 MMOL/L (3.5-5.1); Troponin I Only 0.023 NG/ML (0.00-0.045)
== END 2017-08-16 14:14 | disposition home or self-care (01) | DRG 287 ==
LOC: EDBD → EDUNIT# → N.ED 15:44 → N.EDINP 15:44 → SUATTDRO 18:46 → OBSVTOIN 18:46 → N.5E 19:49 → N.CC 08-14 00:22 → N.TELEN 08-15 14:52
PROVIDERS: ADMIT Family Medicine; ATTEND Internal Medicine
PROC: CLCCHCL (ICD-10-PCS; 2017-08-14 11:45)